=== PATIENT | male | born 1960 | race Caucasian/White ===

== ENCOUNTER 2016-12-12 06:33 | Day surgery (SDC) | payer MEDICARE, OTHER ==
[~2016-12-12] VITALS: Ht 176.5 cm; Wt 89.1 kg
[2016-12-12] VITALS (9 sets, daily range): BP systolic 121–152; BP diastolic 81–99; PULSE 65–81; RESP 9–17; O2SAT 93–97
[~2016-12-12 06:33] MED LIST: ALBU8.5H2 INHALATION; Acetaminophen IV 1,000 mg IV ONE; BUPR150T12 PO; CeFAZolin 2 Gm/50 mL D5W IV Premix IV ONE; EPIN0.3P2 IJ; GABA600T PO; LORA0.5T PO; Lactated Ringer's 1,000 ML IV ONE; MITOMYCIN IRRIGATION ONE; Mitomycin Inj 20 MG in Syringe 1 EACH IRRIGATION ONE; OMEP40CA36 PO; RANI150C4 PO; TRAZ-118 PO; WATER IRRIGATION ONE; hydrocodone
[2016-12-12] MEDS ORDERED: fentaNYL-PF 50 mCg/mL 2 mL Inj ONE (06:34)
[2016-12-12] MEDS ORDERED: Lidocaine PF 1% 30 mL Inj ONE (06:34)
[2016-12-12] MEDS ORDERED: Propofol 10,000 mCg/mL 20 mL Inj ONE (06:34)
[2016-12-12] MEDS ORDERED: Ondansetron 2 mg/mL 2 mL Inj ONE (06:34)
[2016-12-12] MEDS ORDERED: Dexamethasone 4 mg/mL Inj ONE (06:34)
[2016-12-12] MEDS ORDERED: Lactated Ringer's 500 ML IV PRN (08:28)
[2016-12-12] MEDS ORDERED: Lactated Ringer's 1,000 ML IV SCH (08:28)
--- NOTE | 2016-12-12 08:28 | PCM.HPANE ---
Patient Data Surgeon Admitting Provider: Attending Provider:Dionte Clarke MD Primary Care Physician:Isabelle Webster Other Provider:Higinio Ray Anesthesia Reason for Visit Bladder Cancer Ht/WT & BMI Height (Feet): 5 Height (Inches): 9.5 Weight (Kilograms): 89.1 Body Mass Index 28.00 Allergies Coded Allergies: oxycodone (Verified Allergy, Unknown, itching- takes benadryl with use, ) Uncoded Allergies: BEE STINGS (Allergy, Unknown, 12/09/16) Past Anesthesia History Anesthesia History: Denies:: Anesthesia Reactions, Fam Anesthesia Reaction Diabetes History Hx Diabetes?: No MRSA MRSA: Yes (remote hx- hand) Medications Hypertension Medication: No Home Meds Incl Beta Bob: No Reported Medications Trazodone 100 Mg [id number] Mg PO HS Ref 0 12/09/16 Epinephrine (Epipen 2-Matti)0.3 Mg/0.3 Ml Auto.injct0.3 Mg IJ PRN For Anaphyllaxis 12/09/16 Omeprazole 40 Mg Capsule.dr40 Mg PO DAILY Ref 0 12/09/16 Gabapentin (Neurontin)600 Mg Ychops324 Mg PO DAILY 30 Days Ref 0 12/09/16 Lorazepam 0.5 Mg Tablet0.5 Mg PO TID PRN For Anxiety Ref 0 12/09/16 [hydrocodone] 5/500 No Conflict Check1 Tab Q4H PRN For Pain 12/09/16 Albuterol HFA (Proair HFA)8.5 Gm Hfa.aer.ad2 Puffs INHALATION Q4H PRN For Shortness of Breath #1 INHALER 12/09/16 Discontinued Reported Medications Ranitidine 150 Mg [id number] Mg PO BID Ref 0 12/09/16 Bupropion ER 150 Mg Tablet.er150 Mg PO BID Ref 0 12/09/16 History History of ENT Problems?: Yes HEENT History: Positive for:: TMJ (grinds- no nightguard) Denies:: Cataracts Glaucoma Hearing Problem Cardiovascular History: Denies:: AICD Abdominal Aortic Aneurism Atrial Fibrillation Chest Pain Edema Heart Murmur Hypertension Irregular Heartbeat Pacemaker Hx of Respiratory Problem?: Yes Respiratory History: Positive for:: Asthma COPD Pneumonia (last occurence 2 years ago) Use of C-PAP Machine (occasionally- gets claustrophobic with use) Use of Inhalers / NEBS Denies:: Emphysema Oxygen Administration Tuberculosis Hx Neurologic Problems?: Yes Neurological History: Positive for:: Headaches (related to neck problems) Denies:: Alzheimer's Disease CVA Multiple Sclerosis Parkinson's Disease Seizures TIA Hx of GI Problems?: Yes Gastrointestinal History: Positive for:: Gastroesphageal Reflux Heartburn Hepatitis (yellow jaundice as child) Hiatal Hernia Denies:: Gall Bladder Disease Gastrointestinal Bleeding Liver Disease Rectal Bleeding Hx of Problems?: Yes Genitourinary History: Positive for:: Kidney Stones (passed spontaneously) Other Pertinent History: bladder tumor current admission problem Male Hx: Denies:: Prostate Problems Skin History: Denies:: History Skin Disorders? Pressure Ulcers Hx Musculoskeletal Problems?: Yes Musculoskeletal History: Positive for:: Back Injury (ACDF C5-7 hx) Osteoarthritis (hands) Denies:: Fibromyalgia Joint Replacement Musculoskeletal Trauma (hips painful) Myasthenia Gravis Hx of Psycho/Social Problems?: Yes Psycho Social History: Positive for:: Anxiety Denies:: Hx Depression Hx Surgeries?: Yes (ACDF C5-7, carpal tunnel) Hx Any Other Health Problems?: Yes Other History: Denies:: Cancer Thyroid Disease History Blood Transfusions: Positive for:: Accept Blood Products? Denies:: Blood Transfusions Hx Diabetes: No Hx Alcohol Use: NoHx Substance Use: Yes (marijuana daily)Have You Smoked inLast 12 mo: No (quit 2009) Stop/Bang Treated for Sleep Apnea?: Yes Do You Have a CPAP Machine?: Yes S-Snoring: Do You Snore Loudly: No T-Tired: feel tired, fatigued: Yes O-Obsered: Observed not breath: Yes P-Blood Pressure: treated: No B- Body Mass Index > 35 kg/m2: No A- Age over 50: Yes N- Neck Large Circumference: No G- Gender Male: Yes RICKY Total Score: 4 RICKY Category 4 OutPt Procedure: Yes Risk Assessment Category Category 1A: Patient has history of documented sleep apnea, and HAS NOT received any narcotic, sedative or anesthesia administration during this stay. Category 1B: Patient has history of documented sleep apnea, and HAS received any narcotic , sedative or anesthesia administration during this stay Category 2: Patient has SUSPECTED Obstructive Sleep Apnea, and HAS received any narcotic , sedative or anesthesia administration during this stay. Category 3: Patient has SUSPECTED Obstructive Sleep Apnea and HAS NOT received narcotic, sedative or anesthesia administration during this stay. Category 4: Outpatient in Procedural Areas with known sleep apnea or who screen positive for High Risk via the STOP/BANG questionnaire. Exam Exam Vital Signs Vital Signs Date Time Temp Pulse Resp B/P Pulse Ox O2 Delivery O2 Flow Rate FiO2 12/12/16 07:03 CPAP/BIPAP 12/12/16 06:53 35.6 81 12 121/83 93 Room Air General Appearance: Alert, Oriented X3, Cooperative HEENT/AIRWAY: MP 3 Lungs: Clear to Auscultation Heart: Exam Unremarkable Meds/Labs/Diagnostics Admission Meds Current Medications Lactated Ringer's (Lr) 1,000 ml @ 120 mls/hr Q8H20M ONCE IV Last administered on 12/12/16t 06:50; Start 12/12/16 at 05:00; Stop 12/12/16 at 13:19 Plan Impression Patient chart reviewed, patient interviewed and anesthestic plan with risks, benefits, and alternatives discussed, and informed consent obtained. NPO Status: 12/11/16 1800 ASA Physical Status: ASA2 Mod Systemic Disease Anesthetic Plan: GA Bene/Risks/Altern/Consents: Yes HP Complete Prior to Induction: Yes Abner Encarnacion DO Dec 12, 2016 07:51
[2016-12-12] MEDS ORDERED: MetoCLOpramide 5 mg/mL 2 mL Inj IVPUSH PRN (08:30)
[2016-12-12] MEDS ORDERED: Phenylephrine 10,000 mCg/mL Inj IVPUSH PRN (08:30)
[2016-12-12] MEDS ORDERED: Ondansetron 2 mg/mL 2 mL Inj IVPUSH PRN (08:30)
[2016-12-12] MEDS ORDERED: HYDROmorphone 1 mg/mL Inj IVPUSH PRN (08:30)
[2016-12-12] MEDS ORDERED: Labetalol 5 mg/mL 4 mL Inj IV PRN (08:30)
[2016-12-12] MEDS ORDERED: Dexamethasone 4 mg/mL Inj IVPUSH PRN (08:30)
[2016-12-12] MEDS ORDERED: Atropine 0.4 mg/mL Inj IVPUSH PRN (08:30)
[2016-12-12] MEDS ORDERED: hydrALAZINE 20 mg/mL Inj IVPUSH PRN (08:30)
[2016-12-12] MEDS ORDERED: EPHEDrine Sulfate 50 mg/mL Inj IVPUSH PRN (08:30)
[2016-12-12] MEDS ORDERED: fentaNYL-PF 50 mCg/mL 2 mL Inj IVPUSH PRN (08:30)
[2016-12-12] MEDS ORDERED: Belladonna Alk-Opium 60 mg Rectal Suppository RECTAL ONE (08:39)
[2016-12-12] MEDS ORDERED: HYDROcodone-APAP 5-325 mg Tablet PO PRN (09:25)
--- NOTE | 2016-12-12 09:56 | PCM.ANEP1 ---
Post Anesthesia Phase 1 PACU Phase 1 Assessment Vital Signs Vital Signs Date Time Temp Pulse Resp B/P Pulse Ox O2 Delivery O2 Flow Rate FiO2 12/12/16 09:46 36.6 65 17 152/89 97 Room Air 12/12/16 09:40 67 12 139/99 96 Room Air 12/12/16 09:35 36.1 72 12 138/91 96 Room Air 12/12/16 09:30 74 13 133/95 95 Room Air 12/12/16 09:25 79 9 121/92 95 Room Air 12/12/16 09:20 75 9 122/86 96 Room Air 12/12/16 09:17 36.7 77 9 127/81 97 Simple Mask 8 12/12/16 07:03 CPAP/BIPAP 12/12/16 06:53 35.6 81 12 121/83 93 Room Air Anesthetic Administered: GA Level of Alertness: Awake, talking GLASGOW's with Equal Strength: Yes Pain: No Nausea or Vomiting: No Oxygen Delivery: Simple Mask Lungs: Clear to Auscultation Abner Encarnacion DO Dec 12, 2016 09:56
--- NOTE | 2016-12-12 09:57 | PCM.ANEP2 ---
Post Anesthesia Evaluation ASA/CMS Post Anesthesia VS in Patient's Normal Range?: Yes Resp Stable; Airway Patent?: Yes CV Function & Hydration Stable: Yes Mental Status Recovered?: Yes Pain control Satisfactory?: Yes N/V Control Satisfactory?: Yes Abner Encarnacion DO Dec 12, 2016 09:57
--- NOTE | 2016-12-13 00:57 | OP ---
[address] [address] OPERATIVE REPORT PATIENT: CHAPO ZARATE : 1960 MR#: [id number] ADMIT: 12/12/2016 JOB ID: [id number] DATE OF SURGERY: PREOPERATIVE DIAGNOSIS(ES): Bladder neoplasm left lateral wall. POSTOPERATIVE DIAGNOSIS(ES): Bladder neoplasm left lateral wall. PROCEDURE PERFORMED: 1. Cystoscopy, bladder biopsy. 2. Transurethral resection of bladder tumor (2-5 cm). 3. Instillation of mitomycin-C. SURGEON: Dionte Clarke MD. ANESTHESIOLOGIST: Abner Encarnacion MD. ANESTHESIA: General. FINDINGS: Urethra normal. External sphincter intact. Prostate 3.5+ cm length with elevated median bar, bladder trace trabeculation. He has had a shallow bilateral Hutch diverticula associated with normal orifices. No stone. There is spreading what appears be low-grade neoplasm at the left lateral wall and on the margin of the Hutch diverticulum. PROCEDURE SUMMARY: The patient was positioned supine and was administered general anesthesia. He was then repositioned in semi-lithotomy. Lower abdomen, genitalia and groin were prepped and draped in sterile fashion. The 25-Luxembourgish resectoscope was then passed to the lower urinary tract with findings as described above. Cold cup biopsies were then used to obtain three generous specimens into the superficial muscle of the lesion described above. Next, the button element was arranged and electrocautery destruction of the entire lesion, the base of the biopsies in the perimeter was conducted. Hemostasis was excellent. The bladder was then irrigated three times to clear any cellular debris, and after this an 18-Luxembourgish Pina catheter was inserted and 20 cc of mitomycin-C and 20 cc sterile saline was administered for anticipated two hour postop retention. The patient was then repositioned supine, was awakened, transferred to [facility], and transferred to recovery area in stable condition.
--- NOTE | 2016-12-13 12:01 | PATH ---
SURGICAL PATHOLOGY Attending Physician:Dionte Clarke MD CASE STATUS: Signed Out PATIENT NAME: CHAPO ZARATE PID: [id number] : 1960 DATE COLLECTED:12/12/2016 17:18 SPECIMEN: Bladder, Biopsy CLINICAL HISTORY: A: LEFT LATERAL WALL BLADDER FINAL DIAGNOSIS: Urinary Bladder Biopsy Left Lateral Wall: Fragments of papillary urothelial carcinoma, high grade, with no evidence of invasion of the lamina propria. No muscularis propria tissue present. COMMENT: Case reviewed by Dr. Pravin Brito who agrees with the diagnosis. ICD10: C67.2 GROSS DESCRIPTION: The specimen is received in one formalin filled container labeled with the patient's name, sublabeled left lateral wall bladder" and consists of 2 portions of tissue which aggregate to 0.3 x 0.2 x 0.2 CM. The specimen is entirely submitted in one cassette. 12/12/2016 [facility] ICD-9 CODES: CPT CODES: 1: 13330 Electronically Signed Out Arash Adkins MD [facility] [address], [place] [address] Technical component performed at [facility], [address] [place] [address] Ave[address], [place], [address]
== END 2016-12-12 23:59 | disposition home or self-care (01) ==
LOC: SAS 06:33
PROVIDERS: ATTEND Specialist
DX: C67.2 Malignant neoplasm of lateral wall of bladder (principal); J44.9 Chronic obstructive pulmonary disease, unspecified; Z87.891 Personal history of nicotine dependence; J45.909 Unspecified asthma, uncomplicated
CPT/HCPCS: 52235; J0131; J0690; J1100; J2405; J7120; J9280